=== PATIENT | male | born 1955 | race Caucasian/White ===

== ENCOUNTER 2016-09-23 06:50 | Emergency (ER) | payer MEDICARE ==
[~2016-09-23] VITALS: Ht 175.3 cm; Wt 100.0 kg
[2016-09-23 06:50] VITALS: BP 178/89
[~2016-09-23 06:50] MED LIST: ASP81CT PO; CALC600T12 PO; CHOL200014 PO; COLE1TAB PO; ESCI20TA PO; LACO100T2 PO; LEVE500T PO; LORA1TAB PO; MULT-954 PO; PRAV80TA2 PO; PROP20TA5 PO
[2016-09-23] MEDS ORDERED: SODIUM CHLORIDE FLUSH 10 ML SYR IV PRN (07:00)
[2016-09-23] MEDS ORDERED: SODIUM CHLORIDE FLUSH 3 ML SYR IV PRN (07:00)
[2016-09-23] MEDS ORDERED: LORazepam 2 MG/ML (ATIVAN) 1 ML VIAL IV ONE (07:20)
[2016-09-23 07:29] LABS: BASOPHILS % (AUTO) 0 % (0-2); EOSINOPHILS # (AUTO) 0.1 10^3uL; EOSINOPHILS % (AUTO) 1 % (0-4); LYMPHOCYTES # (AUTO) 2.6 X10^3; MEAN CORPUSCULAR HEMOGLOBIN 29.6 PG (26.0-34.0); MEAN CORPUSCULAR HGB CONC 35.4 g/dL (31.0-37.0); MEAN CORPUSCULAR VOLUME 84 FL (80-100); MEAN PLATELET VOLUME 10.5 FL (6.0-9.5); MONOCYTES # (AUTO) 1.1 X10^3; MONOCYTES % (AUTO) 8 % (3-11); NEUTROPHILS # (AUTO) 10.3 X10^3; NEUTROPHILS % (AUTO) 73 % (51-67); PLATELET COUNT 207 10^3uL (150-450); WHITE BLOOD COUNT 14.12 10^3uL (4.0-11.0)
[2016-09-23] MEDS ORDERED: ONDANSETRON 2 MG/ML (Z0FRAN) 2 ML VIAL IV ONE (07:30)
[2016-09-23 07:41] LABS: ALBUMIN 4.7 g/dL (3.4-5.0); ANION GAP 20.4 MEQ/L (3-15); CALCULATED IONIZED CALCIUM 4.1 mg/dL (3.8-4.6); TOTAL PROTEIN 7.6 g/dL (6.4-8.5)
[2016-09-23] MEDS ORDERED: ESCI20TA PO (08:03)
--- NOTE | 2016-09-23 08:10 | Diagnostic Imaging Report ---
INDICATION: Shortness of breath. Frontal chest obtained at 7:37 a.m. and compared with 08/06/16. FINDINGS: Heart is borderline enlarged with central vascular congestion. There is borderline perihilar edema. There is no pneumothorax or pleural fluid or consolidation. IMPRESSION: Cardiomegaly with central vascular congestion and borderline edema. Followup is suggested. Dictated by: Dictated on workstation # [id number]
[2016-09-23 08:13] LABS: INFLUENZA VIRUS TYPE A ANTIBOD Negative (NEGATIVE); INFLUENZA VIRUS TYPE B ANTIBOD Negative (NEGATIVE)
[2016-09-23 09:04] LABS: BILIRUBIN,URINE Negative (Negative); CLARITY,URINE Clear; COLOR,URINE Yellow; GLUCOSE, URINE (UA) Negative (Negative); LEUKOCYTE ESTERASE ,URINE Negative (Negative); UROBILINOGEN,URINE 0.2 mg/dL (0.2-1.0)
[2016-09-23] MEDS ORDERED: NS IV 500 ML 500 ML IV SCH (09:05)
[2016-09-23] MEDS ORDERED: ONDA4TAB8 PO (09:41)
== END 2016-09-23 09:45 | disposition home or self-care (01) ==
LOC: ED 06:52
DX: R50.9 Fever, unspecified (principal); R11.0 Nausea; I45.10 Unspecified right bundle-branch block; R25.1 Tremor, unspecified
CPT/HCPCS: 36415; 71010; 80053; 81003; 83880; 85025; 86140; 87400; 93005; 96361; 96374; 96375; 99283; J2060; J2405; J7030; J7040; 87502; 93010; 99285

== ENCOUNTER 2016-11-10 13:45 | Outpatient (RCR) | payer MEDICARE | END 2016-11-21 16:13 | disposition home or self-care (01) | LOC: PT 13:45 | PROVIDERS: ATTEND Family Medicine | DX: R27.8 Other lack of coordination (principal); G25.2 Other specified forms of tremor | CPT/HCPCS: 97110; 97112; 97116; 97162; G8978; G8979; G8980 ==

== ENCOUNTER 2016-11-27 14:56 | Emergency (ER) | payer MEDICARE ==
[~2016-11-27] VITALS: Ht 175.3 cm; Wt 100.0 kg
[2016-11-27] MEDS ORDERED: LORazepam 2 MG/ML (ATIVAN) 1 ML VIAL IV ONE (15:40)
[2016-11-27] MEDS ORDERED: SODIUM CHLORIDE FLUSH 10 ML SYR IV PRN (15:45)
[2016-11-27] MEDS: SODIUM CHLORIDE FLUSH 3 ML SYR IV PRN ×2 (15:53→16:03)
[2016-11-27 15:57] LABS: MEAN CORPUSCULAR HEMOGLOBIN 29.6 PG (26.0-34.0); MEAN CORPUSCULAR HGB CONC 34.3 g/dL (31.0-37.0); MEAN CORPUSCULAR VOLUME 86 FL (80-100); MEAN PLATELET VOLUME 10.6 FL (6.0-9.5); PLATELET COUNT 219 10^3uL (150-450); WHITE BLOOD COUNT 11.66 10^3uL (4.0-11.0)
[2016-11-27 16:05] LABS: ALBUMIN 4.7 g/dL (3.4-5.0); ANION GAP 25.6 MEQ/L (3-15); CALCULATED IONIZED CALCIUM 4.1 mg/dL (3.8-4.6); TOTAL PROTEIN 7.9 g/dL (6.4-8.5)
[2016-11-27 16:27] LABS: BASOPHILS % (AUTO) 0 % (0-2); EOSINOPHILS % (AUTO) 0 % (0-4); LYMPHOCYTES # (AUTO) 1.8 X10^3; MONOCYTES # (AUTO) 0.9 X10^3; MONOCYTES % (AUTO) 8 % (3-11); NEUTROPHILS # (AUTO) 8.9 X10^3; NEUTROPHILS % (AUTO) 76 % (51-67)
[2016-11-27 22:50] VITALS: BP 121/77
== END 2016-11-27 17:29 | disposition home or self-care (01) ==
LOC: EDUNIT# 14:56 → ED 14:57
DX: F41.1 Generalized anxiety disorder (principal); Z86.69 Personal history of other diseases of the nervous system and sense organs
CPT/HCPCS: 36415; 80053; 85025; 96374; 99283; J2060; 99282

== ENCOUNTER 2017-01-11 13:13 | Emergency (ER) | payer MEDICARE ==
[~2017-01-11] VITALS: Ht 175.3 cm; Wt 100.0 kg
[~2017-01-11 13:13] MED LIST changes: +ONDA4TAB8 PO
[2017-01-11] MEDS ORDERED: LORazepam 2 MG/ML (ATIVAN) 1 ML VIAL IM ONE (13:20)
--- NOTE | 2017-01-11 14:00 | NUR ---
PT STILL HAVING ENTIRE BODY TREMORS. STATES HE DOES NOT FEEL ANY BETTER. DR ORDERS IM VALIUM TO BE GIVEN.
[2017-01-11] MEDS ORDERED: DIAZEPAM 10 MG/2 ML (VALIUM) SYRINGE IM ONE (14:05)
[2017-01-11] MEDS ORDERED: DIAZEPAM 10 MG/2 ML (VALIUM) SYRINGE IV ONE (14:50)
[2017-01-11] MEDS ORDERED: SODIUM CHLORIDE FLUSH 10 ML SYR IV PRN (14:50)
[2017-01-11 15:35] VITALS: BP 170/81
--- NOTE | 2017-01-11 15:35 | NUR ---
pt requests to go home
== END 2017-01-11 15:36 | disposition home or self-care (01) ==
LOC: ED 13:15
DX: G40.209 Localization-related (focal) (partial) symptomatic epilepsy and epileptic syndromes with complex partial seizures, not intractable, without status epilepticus (principal)
CPT/HCPCS: 96372; 96374; 99283; J2060; J3360